=== PATIENT | female | born 1935 | race African-American/Black ===

== ENCOUNTER 2021-08-30 14:05 | Inpatient (IN) | payer OTHER, MEDICAID ==
[~2021-08-30] VITALS: Ht 157.5 cm; Wt 49.5 kg
[2021-08-30 15:43] LABS: CHLORIDE 107 mEq/L (98-107)
[2021-08-30 15:45] LABS: BASOPHILS % 1.1 % (0.0-2.0); HEMATOCRIT. 40.2 % (36.0-48.0); HEMOGLOBIN. 12.8 g/dL (12.0-16.0); LYMPHOCYTES % 32.4 % (20.0-50.0); MEAN CORPUSCULAR HEMOGLOBIN 28.1 pg (28.0-32.0); MEAN CORPUSCULAR VOLUME 87.9 fL (81.0-99.0); MEAN PLATELET VOLUME 8.7 fl (7.4-10.4); NEUTROPHILS % 53.5 % (40.0-76.0); PLATELET 212 x1000/uL (130-400); RED BLOOD CELL COUNT 4.57 mill/uL (4.2-5.4); RED CELL DISTRIBUTION WIDTH 12.9 % (11.6-14.6)
[2021-08-30 15:51] LABS: BETA HYDROXYBUTYRATE 0.1 mMol/L (0.0-0.3)
[2021-08-30] MEDS ORDERED: MORPHINE SULFATE 2 MG/ML CPJ (NOT FOR IM USE) IV PRN (19:45)
[2021-08-30] MEDS ORDERED: DIPHENHYDRAMINE 50MG/ML VIAL IV PRN (19:45)
[2021-08-30] MEDS ORDERED: ONDANSETRON HCL 4MG/2ML INJ IV PRN (19:45)
[2021-08-30] MEDS ORDERED: CLONIDINE 0.1MG TABLET PO PRN (19:45)
[2021-08-30] MEDS ORDERED: GUAIFENESIN 200MG/10ML SUGAR FREE UDC PO PRN (19:45)
[2021-08-30] MEDS ORDERED: HYDRALAZINE 20MG/ML VIAL IV PRN (19:45)
[2021-08-30] MEDS ORDERED: ACETAMINOPHEN 325MG TABLET PO PRN (19:45)
[2021-08-30] MEDS ORDERED: MAGNESIUM/ALUMINUM HYDROXIDE/SIMETHICONE 30ML UDC PO PRN (19:45)
[2021-08-30] MEDS ORDERED: LORAZEPAM 2MG/ML CPJ IV PRN (19:45)
[2021-08-30] MEDS ORDERED: DOCUSATE SODIUM 100MG CAPSULE PO PRN (19:45)
[2021-08-30] MEDS ORDERED: ENOXAPARIN 40MG/0.4ML SYR SUBCUT SCH (19:45)
[2021-08-30] MEDS ORDERED: HYDROCODONE/ACETAMINOPHEN 5/325MG TABLET PO PRN (19:45)
[2021-08-30] MEDS ORDERED: IPRATROPIUM/ALBUTEROL 0.5-3(2.5)MG/3ML NEB HHN PRN (19:45)
[2021-08-30] MEDS ORDERED: NALOXONE HCL 0.4MG/ML VIAL IV PRN (20:00)
[2021-08-30] MEDS: SODIUM CHLORIDE 0.9% INJ 3ML FLUSH IVF SCH (22:06)
[2021-08-30 23:44] LABS: CREATINE KINASE 122 IU/L (26-192); CREATINE KINASE MB FRACTION 1.2 ng/mL (0.5-3.6)
[2021-08-31 04:48] LABS: BASOPHILS % 0.6 % (0.0-2.0); HEMATOCRIT. 37.3 % (36.0-48.0); HEMOGLOBIN. 12.1 g/dL (12.0-16.0); LYMPHOCYTES % 46.7 % (20.0-50.0); MEAN CORPUSCULAR HEMOGLOBIN 28.1 pg (28.0-32.0); MEAN CORPUSCULAR VOLUME 86.6 fL (81.0-99.0); MEAN PLATELET VOLUME 8.4 fl (7.4-10.4); NEUTROPHILS % 42.7 % (40.0-76.0); PLATELET 210 x1000/uL (130-400); RED BLOOD CELL COUNT 4.31 mill/uL (4.2-5.4); RED CELL DISTRIBUTION WIDTH 12.8 % (11.6-14.6)
[2021-08-31 04:57] LABS: CHLORIDE 106 mEq/L (98-107)
[2021-08-31 05:07] LABS: CREATINE KINASE 122 IU/L (26-192)
[2021-08-31 05:12] LABS: CREATINE KINASE MB FRACTION 1.2 ng/mL (0.5-3.6)
[2021-08-31] MEDS: SODIUM CHLORIDE 0.9% INJ 3ML FLUSH IVF SCH ×2 (06:55→22:11)
[2021-08-31 09:00] VITALS: BP 135/84
[2021-08-31] MEDS: ENOXAPARIN 30MG/0.3ML SYR SUBCUT SCH (09:32)
[2021-08-31] MEDS ORDERED: MONT10TA21 PO (11:08)
[2021-08-31] MEDS ORDERED: SIMV-43 PO (11:08)
[2021-08-31] MEDS ORDERED: DONE10TA36 PO (11:08)
[2021-08-31] MEDS ORDERED: ESCI20TA37 PO (11:08)
[2021-08-31] MEDS ORDERED: GABA-529 PO (11:08)
[2021-08-31] MEDS ORDERED: ARIP5TAB58 PO (11:08)
[2021-08-31 12:00] VITALS: BP 136/61
[2021-08-31] MEDS: CITALOPRAM HYDROBROMIDE 10MG TABLET PO SCH (13:08)
[2021-08-31 16:00] VITALS: BP 120/55
[2021-08-31] MEDS: MONTELUKAST SODIUM 10MG TABLET PO SCH (18:25)
[2021-08-31 19:45] LABS: CLARITY URINE CLEAR (CLEAR); COLOR URINE YELLOW (YELLOW); KETONES URINE NEGATIVE (NEGATIVE); LEUKOCYTE ESTERASE URINE NEGATIVE (NEGATIVE); NITRITE URINE NEGATIVE (NEGATIVE); OCCULT BLOOD URINE TRACE (NEGATIVE); PH URINE 5.5 (4.5-8.0); PROTEIN URINE NEGATIVE (NEGATIVE); SPECIFIC GRAVITY URINE 1.019 (1.005-1.030)
[2021-08-31 19:59] LABS: *AMPHETAMINES SCREEN URINE NEGATIVE (NEGATIVE); *BARBITURATES SCREEN URINE NEGATIVE (NEGATIVE); *BENZODIAZEPINES SCREEN URINE NEGATIVE (NEGATIVE); *COCAINE SCREEN URINE NEGATIVE (NEGATIVE); CANNABINOID URINE SCREEN NEGATIVE (NEGATIVE); METHADONE URINE SCREEN NEGATIVE (NEGATIVE); OPIATES URINE SCREEN NEGATIVE (NEGATIVE); PHENCYCLIDINE URINE SCREEN NEGATIVE (NEGATIVE)
[2021-08-31 20:00] VITALS: BP 124/64
[2021-08-31] MEDS: ATORVASTATIN CALCIUM 10MG TABLET PO SCH (20:24)
[2021-08-31] MEDS: GABAPENTIN 100MG CAPSULE PO SCH (20:24)
[2021-08-31] MEDS ORDERED: NON FORMULARY PATIENT HOME MED PO SCH (21:00)
[2021-09-01] VITALS: BP 140/61
[2021-09-01 04:00] VITALS: BP 109/60
[2021-09-01 06:09] LABS: CHLORIDE 105 mEq/L (98-107)
[2021-09-01 06:25] LABS: BASOPHILS % 0.5 % (0.0-2.0); EOSINOPHILS % 2.4 % (0.0-5.0); HEMATOCRIT. 37.2 % (36.0-48.0); HEMOGLOBIN. 12.1 g/dL (12.0-16.0); MEAN CORPUSCULAR HEMOGLOBIN 28.2 pg (28.0-32.0); MEAN CORPUSCULAR VOLUME 86.5 fL (81.0-99.0); MEAN PLATELET VOLUME 9.1 fl (7.4-10.4); MONOCYTES % 8.2 % (2.0-8.0); NEUTROPHILS % 36.9 % (40.0-76.0); PLATELET 224 x1000/uL (130-400); RED CELL DISTRIBUTION WIDTH 12.9 % (11.6-14.6)
[2021-09-01] MEDS: SODIUM CHLORIDE 0.9% INJ 3ML FLUSH IVF SCH ×3 (06:26→20:30)
[2021-09-01 08:17] VITALS: BP 117/56
[2021-09-01] MEDS ORDERED: NON FORMULARY PATIENT HOME MED PO SCH (09:00)
[2021-09-01] MEDS ORDERED: DONEPEZIL HCL 10MG TABLET PO SCH (09:00)
[2021-09-01] MEDS: ENOXAPARIN 30MG/0.3ML SYR SUBCUT SCH (09:33)
[2021-09-01] MEDS: ARIPIPRAZOLE 5MG TABLET PO SCH (09:33)
[2021-09-01] MEDS: CITALOPRAM HYDROBROMIDE 10MG TABLET PO SCH (09:33)
[2021-09-01 12:28] VITALS: BP 118/58
[2021-09-01 16:00] VITALS: BP 101/59
[2021-09-01] MEDS: MONTELUKAST SODIUM 10MG TABLET PO SCH (16:00)
[2021-09-01 20:00] VITALS: BP 122/53
[2021-09-01] MEDS: ATORVASTATIN CALCIUM 10MG TABLET PO SCH (20:30)
[2021-09-01] MEDS: GABAPENTIN 100MG CAPSULE PO SCH (20:30)
[2021-09-02] VITALS: BP 115/56
[2021-09-02 04:00] VITALS: BP 118/58
[2021-09-02] MEDS: SODIUM CHLORIDE 0.9% INJ 3ML FLUSH IVF SCH ×3 (05:01→20:50)
[2021-09-02 06:41] LABS: EOSINOPHILS % 2.8 % (0.0-5.0); HEMATOCRIT. 37.7 % (36.0-48.0); HEMOGLOBIN. 12.2 g/dL (12.0-16.0); LYMPHOCYTES % 49.2 % (20.0-50.0); MEAN CORPUSCULAR VOLUME 86.6 fL (81.0-99.0); MEAN PLATELET VOLUME 8.5 fl (7.4-10.4); MONOCYTES % 10.1 % (2.0-8.0); NEUTROPHILS % 36.9 % (40.0-76.0); PLATELET 215 x1000/uL (130-400); RED BLOOD CELL COUNT 4.36 mill/uL (4.2-5.4); RED CELL DISTRIBUTION WIDTH 12.8 % (11.6-14.6)
[2021-09-02 07:38] LABS: CHLORIDE 107 mEq/L (98-107)
[2021-09-02 07:52] VITALS: BP 105/58
[2021-09-02 08:21] LABS: VITAMIN B12 SERUM 832 pg/mL (211-911)
[2021-09-02] MEDS: ENOXAPARIN 30MG/0.3ML SYR SUBCUT SCH (09:29)
[2021-09-02] MEDS: CITALOPRAM HYDROBROMIDE 10MG TABLET PO SCH (09:29)
[2021-09-02] MEDS: ARIPIPRAZOLE 5MG TABLET PO SCH (09:31)
[2021-09-02 11:35] VITALS: BP 112/58
[2021-09-02 15:47] VITALS: BP 107/51
[2021-09-02] MEDS: MONTELUKAST SODIUM 10MG TABLET PO SCH (16:22)
[2021-09-02 20:00] VITALS: BP 119/59
[2021-09-02] MEDS: GABAPENTIN 100MG CAPSULE PO SCH (20:49)
[2021-09-02] MEDS: ATORVASTATIN CALCIUM 10MG TABLET PO SCH (20:49)
[2021-09-03] VITALS: BP_SYST 112; BP_SYST 121; BP_SYST 129; BP_DIAS 60; BP_DIAS 69; BP_DIAS 74
[2021-09-03 04:00] VITALS: BP 135/61
[2021-09-03] MEDS: SODIUM CHLORIDE 0.9% INJ 3ML FLUSH IVF SCH (05:17)
[2021-09-03 08:05] VITALS: BP 112/54
[2021-09-03] MEDS: ARIPIPRAZOLE 5MG TABLET PO SCH (09:11)
[2021-09-03] MEDS: CITALOPRAM HYDROBROMIDE 10MG TABLET PO SCH (09:12)
[2021-09-03 10:05] VITALS: BP 112/54
[2021-09-03] MEDS: ENOXAPARIN 30MG/0.3ML SYR SUBCUT SCH (10:33)
== END 2021-09-03 13:32 | disposition home or self-care (01) | DRG 74 ==
LOC: ER 14:05 → MICUSO 19:29 → EDBEDREQTM 19:43 → EDBEDREQ 19:43 → 7EST 08-31 07:28
PROVIDERS: ADMIT Internal Medicine; ATTEND Internal Medicine
PROC: 4A10X4Z Monitoring of Central Nervous Electrical Activity, External Approach (ICD-10-PCS; principal; 2021-09-03)
DX: G90.8 Other disorders of autonomic nervous system (principal); F03.90 Unspecified dementia, unspecified severity, without behavioral disturbance, psychotic disturbance, mood disturbance, and anxiety; M19.90 Unspecified osteoarthritis, unspecified site; F32.A Depression, unspecified; I10 Essential (primary) hypertension; F41.9 Anxiety disorder, unspecified; J44.9 Chronic obstructive pulmonary disease, unspecified; Z79.899 Other long term (current) drug therapy; Z87.440 Personal history of urinary (tract) infections; Z87.891 Personal history of nicotine dependence
CPT/HCPCS: 36415; 71045; 80048; 80053; 80305; 81003; 82010; 82550; 82553; 82607; 83605; 83880; 84145; 84443; 84484; 85025; 93005; 93306; 93880; 93970; 95816; 97110; 97116; 97162; 99285; C1893; J1650